=== PATIENT | male | born 1980 | race Hispanic/Latino ===

== ENCOUNTER 2024-07-13 12:23 | Inpatient (IN) | payer SELFPAY ==
[2024-07-13] VITALS (35 sets, daily range): BP systolic 61–167; BP diastolic 24–111
[~2024-07-13] VITALS: Ht 172.7 cm; Wt 77.2 kg
[2024-07-13 13:06] LABS: BASO% 0.4 % (0-3); EOS% 0.7 % (0-8); HEMATOCRIT 51.2 % (39.0-50.0); HEMOGLOBIN 16.1 g/dl (14.0-18.0); IMMATURE GRANULOCYTES 0.1 % (0.0-5.0); LYMPH% 25.5 % (15-41); MEAN CELL VOLUME 88.6 fL CALC (80.0-100.0); MEAN CORPUSCULAR HGB 27.9 pG CALC (26.0-32.0); MEAN CORPUSCULAR HGB CONC 31.4 g/dL CAL (32.0-36.0); MONO% 8.5 % (2-13); NEUT# 5.39 thou/uL (1.82-7.42); NEUT% 64.8 % (42-76); RED BLOOD COUNT 5.78 mill/uL (4.70-6.10); RED CELL DISTRI WIDTH 14.7 % (11.5-15.5)
[2024-07-13 13:11] LABS: ALKALINE PHOSPHATASE 112 u/l (38-126); ANION GAP 14 (6-22 (CALC)); BUN 22 mg/dL (9-20); BUN/CREATININE RATIO 23 (12-20 (CALC)); CARBON DIOXIDE 20 mmol/l (22-30); CHLORIDE 111 mmol/l (95-108); CREATININE 0.9 mg/dL (0.7-1.3); ESTIMATED GFR 107 ML/MIN (>=90 (CALC)); POTASSIUM 4.2 mmol/l (3.5-5.1); SGOT/AST 29 u/l (17-59); SODIUM 140 mmol/l (137-146)
[2024-07-13] MEDS ORDERED: AZITHROMYCIN 500 MG in SODIUM CHLORIDE 0.9% 250 ML IV ONE (14:20)
[2024-07-13] MEDS ORDERED: FUROSEMIDE 40 MG/4 ML SDV IV ONE (14:20)
[2024-07-13] MEDS ORDERED: ASPIRIN 81 MG/TAB PO ONE (15:05)
[2024-07-13] MEDS ORDERED: MAGNESIUM HYDROXIDE 30 ML UDC PO PRN (15:20)
[2024-07-13] MEDS ORDERED: ACETAMINOPHEN 325 MG/TAB PO PRN (15:20)
[2024-07-13] MEDS ORDERED: IPRATROPIUM-Albuterol 0.5MG-2.5MG/3 ML NEB PRN (15:25)
[2024-07-13] MEDS ORDERED: FUROSEMIDE 40 MG/4 ML SDV IV SCH (18:00)
[2024-07-13] MEDS ORDERED: ENOXAPARIN SODIUM 40 MG/0.4 ML SYR SC SCH (21:00)
[2024-07-14 00:13] VITALS: BP 127/98
[2024-07-14 05:25] LABS: BASO% 0.6 % (0-3); HEMOGLOBIN 14.4 g/dl (14.0-18.0); IMMATURE GRANULOCYTES 0.1 % (0.0-5.0); LYMPH% 25.1 % (15-41); MEAN CORPUSCULAR HGB 28.2 pG CALC (26.0-32.0); MEAN CORPUSCULAR HGB CONC 32.1 g/dL CAL (32.0-36.0); MONO% 10.9 % (2-13); NEUT# 5.17 thou/uL (1.82-7.42); NEUT% 62.3 % (42-76); RED BLOOD COUNT 5.1 mill/uL (4.70-6.10); RED CELL DISTRI WIDTH 14.5 % (11.5-15.5)
[2024-07-14 05:38] LABS: HEMATOCRIT 44.9 % (39.0-50.0)
[2024-07-14 05:40] LABS: ALBUMIN 3.3 g/dL (3.2-5.0); BILIRUBIN, TOTAL 1.8 mg/dL (0.2-1.3); CHOLESTEROL HDL RATIO 3.7 (<4.4 (CALC)); MAGNESIUM 1.8 mg/dL (1.6-2.3)
[2024-07-14 07:00] VITALS: BP 133/95
[2024-07-14] MEDS ORDERED: LISINOPRIL 2.5 MG TAB PO SCH (09:00)
[2024-07-14] MEDS ORDERED: ASPIRIN EC 81 MG/TAB PO SCH (09:00)
[2024-07-14] MEDS ORDERED: SPIRONOLACTONE 25 MG/TAB PO SCH (09:00)
[2024-07-14] MEDS ORDERED: CARVEDILOL 6.25 MG/TAB PO SCH (09:00)
[2024-07-14 10:43] VITALS: BP 120/91
[2024-07-14] MEDS ORDERED: AZITHROMYCIN 500 MG in SODIUM CHLORIDE 0.9% 250 ML IV SCH (15:30)
[2024-07-14] MEDS ORDERED: ATORVASTATIN CALCIUM 40 MG/TAB PO SCH (21:00)
== END 2024-07-14 15:31 | disposition short-term general hospital (02) | DRG 291 ==
LOC: ED 12:23 → ED-I 14:42 → ED 15:08 → MS2 15:09
PROVIDERS: Family Medicine; Nurse Practitioner Family; ADMIT Internal Medicine; ATTEND Internal Medicine
PROC: 0W993ZZ Drainage of Right Pleural Cavity, Percutaneous Approach (ICD-10-PCS; principal; 2024-07-14)
DX: I50.21 Acute systolic (congestive) heart failure (principal); J18.9 Pneumonia, unspecified organism; I31.39 Other pericardial effusion (noninflammatory); J90 Pleural effusion, not elsewhere classified; I45.10 Unspecified right bundle-branch block; I20.9 Angina pectoris, unspecified; I08.1 Rheumatic disorders of both mitral and tricuspid valves; E11.9 Type 2 diabetes mellitus without complications; I27.20 Pulmonary hypertension, unspecified
CPT/HCPCS: J1650; Q9967